=== PATIENT | female | born 2005 | race Caucasian/White ===

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

== ENCOUNTER 2025-02-27 04:26 | Emergency (ER) | payer OTHER, SELFPAY ==
[2025-02-27 04:31] VITALS: BP 97/64
--- NOTE | 2025-02-27 05:01 | ED.GENMED ---
History of Present Illness
General
Chief Complaint: Withdrawal Symptoms
Source: patient
Exam Limitations: none
Time Seen by Provider: 02/27/25 04:46
Nursing documentation reviewed up to this point in time: agreed with
History of Present Illness
History of Present Illness:
19-year-old female with past medical history of asthma, migraines, opioid use disorder presents emergency department today with concerns of opioid withdrawal symptoms. Patient reports that her last use of oxycodone was in the past 24 hours. She is
not recall the exact timing. She reports that she takes around four 20 mg tablets every day. Patient reports that she currently has trouble sitting still and feels like she has a headache and some nausea but denies any tremors, denies any
abdominal pain. She denies any vomiting. Contrary to triage note, she does not take speed or any other amphetamine medications. She denies palpitations, chest pain, shortness of breath. She is awaiting medical clearance for incarceration.
Past History
Past History
ED Past Medical History: Asthma and Other (UTI, Migraines, ADHD, Kidney failure in )
ED Past Surgical History: None
Social History
Tobacco: Vaping
Alcohol: Occasional
Drug: Marijuana
Personal: Single
Living: with family
Review of Systems
Review of Systems
All Other Systems: ROS reviewed and negative except as documented in HPI and ROS
Phy Exam
Physical Exam
Physical Exam:
General: Patient is well appearing and in no acute distress; non-toxic
Skin: Warm and dry, no rashes or lesions
Head: Normocephalic, atraumatic
Eyes: Sclera non-icteric. EOMs intact. PERRLA.
Cardiac: Regular rate and rhythm, no murmurs
Pulm: Normal respiratory effort, no wheezes, rales, rhonchi
Abdomen: No abdominal tenderness to palpation
Neuro: CN II-XII intact, no focal neurologic deficits.
Psychiatric: Appropriate mood and affect. Not acutely agitated.
Scores
COW Clinical Opiate Withdrawal Scale
Resting Pulse Rate: 80 or below
Sweating-over past 30min not from room temp or activity: No report of chills or flushing
Restlessness-observation during assessment: Reports difficulty sittin
Pupil Size: Pupils pinned or normal size for room light
Bone or Joint Aches: Not present
Runny Nose or Tearing-not accounted for by cold/allergies: Not present
GI Upset-over last 30min: No GI Symptoms
Tremor-observation of outstretched hands: No tremor
Yawning-observation during assessment: No yawning
Anxiety or Irritability: Patient reports increasing irritability or anxiousness
Gooseflesh Skin: Skin is smooth
Score: 2
Withdrawal Severity: Minimal Withdrawal
Course
Orders/Labs/Results
Orders:
Orders
02/27/25 05:10
Ibuprofen [Motrin] 600 mg PO NOW STA
Ondansetron HCl [Zofran] 4 mg PO NOW STA
Vital Signs
Initial and Last Documented VS:
Initial Vital Signs
Temp Pulse Resp BP Pulse Ox
98.3 F 68 18 97/64 98
02/27/25 04:31 02/27/25 04:31 02/27/25 04:31 02/27/25 04:31 02/27/25 04:31
Last Documented Vital Signs
Temp Pulse Resp BP Pulse Ox
98.3 F 70 16 102/68 98
02/27/25 04:31 02/27/25 05:45 02/27/25 05:45 02/27/25 05:45 02/27/25 05:45
MDM/Problems Addressed
Differential Diagnosis Includes:
Patient presents for medical clearance for incarceration

dx include opioid withdrawal, anxiety, tension headache
MDM/Problems Addressed:
19-year-old female with past medical history of asthma, migraines, opioid use disorder presents emergency department today with concerns of opioid withdrawal symptoms.
Patient reports that she can cannot sit still and feels agitated however did walk by her room twice and she was taking a nap.
On my physical exam, she is well appearing, in no acute distress, she is not tacycardic. Her COWS socre is 2. Suspect mild opioid with drawal. Patient given zofran and ibuprofen for her symptoms. On reexamination she appears well. No indication for
buporphine induction. Patient stable for incarceration
*Pulse Oximetry
Patient hypoxic: no
*Critical Care Note
Total Time (30-74mins, 75-104mins- exclusive of procedures): Not Applicable
Data Reviewed
Review of Other/Old Records Reveals: Records (Reviewed ER physician augmentation: patient seen)
ED Attending Note
-
Portions of this chart may have been created with voice recognition software.� Occasional wrong word or��sound alike� substitutions may have occurred due to the inherent limitations of voice recognition software.
Discharge Plan
Departure
Patient Disposition: Home (Routine Discharge)
Date of Disposition: 02/27/25
Time of Disposition: 05:40
Patient with high blood pressure during this ER visit?: No
Condition: Good
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
Opioid withdrawal
Instructions: Drug Misuse and Addiction (DC), Opioid withdrawal - ED discharge instructions
Prescriptions:
New
ondansetron 4 mg tablet,disintegrating
4 mg PO Q6H PRN (Reason: nausea and vomiting) Qty: 10 0RF
No Action
Control Pills
1 tab PO DAILY
cephalexin 500 mg capsule
500 mg PO Q8H 7 Days Qty: 21 0RF
Activity Restrictions/Additional Instructions:
Patient experienced mild opioid withdrawal. Her COWS score is 2. She is medically stable for incarceration.
Patient can have Tylenol and Motrin as needed for body aches/headaches. She can take 1 Zofran tablet every 6 hours as needed.
PLEASE RETURN TO EMERGENCY DEPARTMENT SHOULD YOU DEVELOP TREMORS, INTRACTABLE NAUSEA OR VOMITING, INABILITY TO TOLERATE ORAL INTAKE, CHEST PAIN, SHORTNESS OF BREATH, DIZZINESS, LIGHTHEADEDNESS, VISUAL DISTURBANCES, OR ANY OTHER SIGNS OR SYMPTOMS
WORRISOME TO YOU.
Interventions
Interventions:
*Risk Screen - Suicide Last Done: 02/27/25 05:25
*General Assessment Last Done: 02/27/25 05:25
*Neglect/Abuse Screening Last Done: 02/27/25 05:25
*ED- Fall Risk Assessment Last Done: 02/27/25 05:25
*ED COVID-19 Vaccine History Last Done: 02/27/25 05:25
*Nursing Disposition Last Done: 02/27/25 05:47
ED- Neurological Assessment Last Done: 02/27/25 05:25
ED-Psychological Assessment Last Done: 02/27/25 05:25
Discharge Date and Time
Discharge Date/Time: 02/27/25 06:07
Print Language: URDU
[2025-02-27] MEDS: ZOFRAN 4 MG PO (05:18)
[2025-02-27] MEDS: MOTRIN 600 MG PO (05:18)
[2025-02-27 05:45] VITALS: BP 102/68
== END 2025-02-27 06:07 | disposition home or self-care (01) ==
LOC: EMR 04:26
PROVIDERS: EMERGENCY PHYSICIAN Emergency Medicine
DX: F11.23 Opioid dependence with withdrawal (principal); F90.9 Attention-deficit hyperactivity disorder, unspecified type; J45.909 Unspecified asthma, uncomplicated; F17.290 Nicotine dependence, other tobacco product, uncomplicated; Z02.89 Encounter for other administrative examinations; Z87.440 Personal history of urinary (tract) infections
CPT/HCPCS: 99283